=== PATIENT | male | born 1950 | race Caucasian/White ===

== ENCOUNTER 2017-02-16 10:27 | Inpatient (IN) | payer MEDICARE ==
[~2017-02-16] VITALS: Ht 180.3 cm; Wt 113.0 kg
[2017-02-16] VITALS (11 sets, daily range): BP systolic 111–149; BP diastolic 58–79; PULSE 83–98; RESP 14–20; O2SAT 92–98
[2017-02-16] MEDS: Lactated Ringer's 1,000 ML IV SCH ×3 (05:00→12:04)
[~2017-02-16 10:27] MED LIST: AMLO5TAB2 PO; CITA40TA13 PO; COLC0.6T52 PO; CeFAZolin 2 Gm/50 mL D5W IV Premix IV ONE; FERR324T2 PO; FINA5TAB9 PO; FURO40TA4 PO; HYDR-4003 PO; LEVO88TA4 PO; MULT-1018 PO; PRD5T PO; SIMV20TA4 PO; TAMS0.4C29 PO
[2017-02-16] MEDS ORDERED: CeFAZolin Inj 2 gm / 50mL D5W IV ONE (10:36)
[2017-02-16] MEDS: Vancomycin 1 Gm/200 mL NS Premix IV SCH (11:00)
[2017-02-16] MEDS ORDERED: Tranexamic Acid 100 mg/mL 10 mL Inj ONE (11:26)
[2017-02-16] MEDS ORDERED: 0.9% Sodium Chloride 100 ML ONE (11:26)
[2017-02-16] MEDS ORDERED: Bupivacaine Liposome 1.3% 20 mL Inj ONE (12:16)
[2017-02-16] MEDS ORDERED: 0.9% Sodium Chloride 10 mL Inj INFILTRATE ONE (12:55)
[2017-02-16] MEDS ORDERED: Bupivacaine Liposome 1.3% 20 mL Inj INFILTRATE ONE (12:55)
[2017-02-16] MEDS ORDERED: Bupivacaine-MPF 0.5% W/EPI 30 mL Inj INFILTRATE ONE (12:55)
[2017-02-16] MEDS ORDERED: Lactated Ringer's 500 ML IV PRN (13:24)
[2017-02-16] MEDS ORDERED: Lactated Ringer's 1,000 ML IV SCH (13:24)
--- NOTE | 2017-02-16 13:24 | PCM.HPANE ---
Patient Data Surgeon Admitting Provider: Attending Provider:Anand Archuleta DO Primary Care Physician:Nasir York MD Other Provider: Reason for Visit Right Hip Arthritis Ht/WT & BMI Height (Feet): 5 Height (Inches): 11 Weight (Kilograms): 112.76 Body Mass Index 34.00 Allergies Coded Allergies: Molds and Smuts (Verified Allergy, Intermediate, 08/25/15) aspirin (Verified Allergy, Unknown, 09/04/16) oxycodone (Verified Allergy, Unknown, 09/04/16) tetracycline (Verified Adverse Reaction, Unknown, SALT TASTE IN MOUTH, 09/29) Past Anesthesia History Anesthesia History: Denies:: Abnormal Airway, Anesthesia Reactions, Difficult Intubation, Fam Anesthesia Reaction, Fam Malignant Hypertherm, Malignant Hyperthermia Diabetes History Hx Diabetes?: No MRSA MRSA: No Medications Hypertension Medication: Yes Home Meds Incl Beta Lanre: No Reported Medications Tamsulosin ER 0.4 Mg Cap.er.24h0.4 Mg PO DAILY Ref 0 02/15/17 Simvastatin 20 Mg Fjznwv63 Mg PO HS Ref 0 02/15/17 Multivitamin (Multi Vitamin Daily)1 Each Tablet1 Each PO DAILY 30 Days Ref 0 02/15/17 Levothyroxine 88 Mcg Xioauc63 Mcg PO DAILY Ref 0 02/15/17 Hydrocodone-Acetaminophen 5-325 mg 1 Each Tablet1 Tablet PO Q4H PRN For Pain Ref 0 02/15/17 Furosemide 40 Mg Bahbso47 Mg PO DAILY 02/15/17 Finasteride 5 Mg Tablet5 Mg PO DAILY 30 Days Ref 0 02/15/17 Ferrous Sulfate 324 Mg Tablet.dr324 Mg PO DAILY 30 Days Ref 0 02/15/17 Colchicine (Colcrys)0.6 Mg Tablet0.6 Mg PO DAILY 02/15/17 Citalopram 40 Mg Feplsx69 Mg PO DAILY 30 Days Ref 0 02/15/17 Amlodipine 5 Mg Tablet5 Mg PO DAILY Ref 0 02/15/17 Prednisone (PredniSONE)5 Mg Tab5 Mg PO DAILY Ref 0 02/15/17 Discontinued Reported Medications [OTC Allergy Relief] No Conflict Check1 Tab PO DAILY PRN allergy 12/03/16 Fluticasone Propionate (Flonase Allergy Relief)50 Mcg/Actuation [place].susp9.9 Ml NS DAILY PRN allergy 12/03/16 Ferrous Sulfate 325 Mg Svarvs179 Mg PO BID 30 Days Ref 0 12/03/16 Furosemide 40 Mg Yyybsv34 Mg PO DAILY 12/03/16 Nystatin (Nyata)100,000 Unit/Gram Jfobhw74 Gm TP BID 12/03/16 Finasteride 1 Mg Tablet1 Mg PO DAILY 12/03/16 Amlodipine 10 Mg Wjoynq25 Mg PO DAILY Ref 0 12/03/16 Prednisone (PredniSONE)5 Mg Tab5 Mg PO DAILY #30 TABLET Ref 0 10/01/16 Multivitamin (Multi Vitamin Daily)1 Each Tablet1 Each PO DAILY 30 Days Ref 0 09/17/16 Hydrocodone-Acetaminophen 5-325 mg 1 Each Tablet1 Tablet PO Q4H PRN For Pain Ref 0 09/17/16 Tamsulosin ER 0.4 Mg Cap.er.24h0.4 Mg PO DAILY 30 Days Ref 0 02/20/15 Simvastatin 20 Mg Fwoclv13 Mg PO HS 30 Days Ref 0 02/20/15 Levothyroxine 88 Mcg Sogeag55 Mcg PO DAILY 30 Days Ref 0 02/20/15 Citalopram 40 Mg Bfadso59 Mg PO DAILY 30 Days Ref 0 02/20/15 History History of ENT Problems?: Yes HEENT History: Positive for:: Hearing Problem Sinus Problem (stuffiness) Denies:: Abnormal Airway Difficult Intubation Dysphagia Hx of Heart Problems?: Yes Cardiovascular History: Positive for:: Edema (legs) Hypertension Denies:: AICD Atrial Fibrillation Cardiac Surgery Chest Pain Congestive Heart Failure Heart Murmur Irregular Heartbeat Pacemaker Thrombophlebitis Valvular Heart Disease Other Cardiac History: under current care of hematolgy for hemolytic anemia- dr rodriguez. stabilized on prednisone- recommended to continue prednisone thru surgery Hx of Respiratory Problem?: Yes Respiratory History: Positive for:: Dyspnea (hip resulted in lack of activity which has led to SOB with exertion) Use of C-PAP Machine Denies:: Asthma COPD Chest Surgery Cough Emphysema Hemoptysis Oxygen Administration Pneumonia Tuberculosis Use of Inhalers / NEBS Hx Neurologic Problems?: Yes Neurological History: Denies:: CVA Multiple Sclerosis Parkinson's Disease Seizures Hx of GI Problems?: Yes Gastrointestinal History: Positive for:: Gastroesphageal Reflux Gastrointestinal Bleeding Heartburn Denies:: Diverticulitis Hepatitis Hiatal Hernia Rectal Bleeding Other GI Pertinent History: hx of Crohns disease, ostomy in place Hx of Problems?: Yes Genitourinary History: Positive for:: Kidney Stones (past hx of) Denies:: HX of Hemodialysis (CKD stage 3/ hypertensive nephrosclerosis) Urinary Tract Infection HX of Peritoneal Dialysis: No Male Hx: Positive for:: Prostate Problems (BPH) Denies:: Scrotal Mass Testicular Surgery Skin History: Positive for:: History Skin Disorders? (Heat rash in groin area occasionally) Denies:: Pressure Ulcers Hx Musculoskeletal Problems?: Yes Musculoskeletal History: Positive for:: Musculoskeletal Trauma (right hip current admission problem) Osteoarthritis Denies:: Back Injury Joint Replacement Hx of Psycho/Social Problems?: Yes Psycho Social History: Positive for:: Anxiety (Long time ago 1999) Hx Depression Denies:: Bipolar Disorder Suicide Attempt Hx Surgeries?: Yes (kidney stones) Hx Any Other Health Problems?: Yes Other History: Positive for:: Hospitalization Thyroid Disease (Hypothyroidism) Denies:: Cancer Endocrine Disease History Blood Transfusions: Positive for:: Blood Transfusions (aug 2016, 3 units for hemolytic anemia) Hx Diabetes: No Hx Alcohol Use: YesHx Substance Use: No Smoking Status: Current Every Day Smoker Have You Smoked inLast 12 mo: Yes (10 cig day) Stop/Bang P-Blood Pressure: treated: Yes B- Body Mass Index > 35 kg/m2: No A- Age over 50: Yes N- Neck Large Circumference: No G- Gender Male: Yes Risk Assessment Category Category 1A: Patient has history of documented sleep apnea, and HAS NOT received any narcotic, sedative or anesthesia administration during this stay. Category 1B: Patient has history of documented sleep apnea, and HAS received any narcotic , sedative or anesthesia administration during this stay Category 2: Patient has SUSPECTED Obstructive Sleep Apnea, and HAS received any narcotic , sedative or anesthesia administration during this stay. Category 3: Patient has SUSPECTED Obstructive Sleep Apnea and HAS NOT received narcotic, sedative or anesthesia administration during this stay. Category 4: Outpatient in Procedural Areas with known sleep apnea or who screen positive for High Risk via the STOP/BANG questionnaire. Exam Exam General Appearance: Alert, Oriented X3, Cooperative, No Acute Distress HEENT/AIRWAY: MP 2, Neck Movement Lungs: Clear to Auscultation, Diminished Heart: Exam Unremarkable, Regular Rate/Rhythm, No Murmurs/Rubs/Gallops Meds/Labs/Diagnostics Admission Meds Current Medications Lactated Ringer's (Lr) 1,000 ml @ 120 mls/hr Q8H20M IV Last administered on t 05:46; Start 02/16/17 at 05:00; Stop 02/16/17 at 13:19 Plan Impression Patient chart reviewed, patient interviewed and anesthestic plan with risks, benefits, and alternatives discussed, and informed consent obtained. NPO Status: [id number] [facility] ASA Physical Status: ASA3 Severe Disease Anesthetic Support Modalities: Amelia Scope Anesthetic Plan: GA, SAB (Will attempt SAB first, if unsuccessful then patient consented for GETA.) Bene/Risks/Altern/Consents: Yes HP Complete Prior to Induction: Yes Anand Cardozo MD Feb 16, 2017 09:29
[2017-02-16] MEDS ORDERED: EPHEDrine Sulfate 50 mg/mL Inj IVPUSH PRN (13:25)
[2017-02-16] MEDS ORDERED: Atropine 0.4 mg/mL Inj IVPUSH PRN (13:25)
[2017-02-16] MEDS ORDERED: Ondansetron 2 mg/mL 2 mL Inj IVPUSH PRN ×2 (13:25→14:05)
[2017-02-16] MEDS ORDERED: HYDROmorphone 1 mg/mL Inj IVPUSH PRN (13:25)
[2017-02-16] MEDS ORDERED: MetoCLOpramide 5 mg/mL 2 mL Inj IVPUSH PRN (13:25)
[2017-02-16] MEDS ORDERED: Phenylephrine 10,000 mCg/mL Inj IVPUSH PRN (13:25)
[2017-02-16] MEDS ORDERED: Labetalol 5 mg/mL 4 mL Inj IV PRN (13:25)
--- NOTE | 2017-02-16 13:30 | PCM.ANEP1 ---
Post Anesthesia Phase 1 PACU Phase 1 Assessment Vital Signs Vital Signs Date Time Temp Pulse Resp B/P Pulse Ox O2 Delivery O2 Flow Rate FiO2 02/16/17 11:25 36.7 83 18 134/72 95 Room Air 02/16/17 11:13 CPAP/BIPAP Anesthetic Administered: Regional Block (R ), SAB Level of Alertness: Awake, talking JOHNSON's with Equal Strength: No (SAB still in effect) Pain: No Nausea or Vomiting: No Oxygen Delivery: Simple Mask Lungs: Clear to Auscultation, Diminished Dermatome Level: T8 (Costal Margin) Anand Cardooz MD Feb 16, 2017 13:30
--- NOTE | 2017-02-16 13:31 | PCM.ANEP2 ---
Post Anesthesia Evaluation ASA/CMS Post Anesthesia VS in Patient's Normal Range?: Yes Resp Stable; Airway Patent?: Yes CV Function & Hydration Stable: Yes Mental Status Recovered?: Yes Pain control Satisfactory?: Yes N/V Control Satisfactory?: Yes Anand Cardozo MD Feb 16, 2017 13:30
[2017-02-16] MEDS ORDERED: diphenhydrAMINE 25 mg Capsule PO PRN (14:05)
[2017-02-16] MEDS ORDERED: Magnesium Hydroxide 10 mL Oral Concentration PO PRN (14:05)
[2017-02-16] MEDS ORDERED: Sodium Biphos-Phos 133 mL Enema RECTAL PRN (14:05)
[2017-02-16] MEDS ORDERED: Acetaminophen IV 1,000 MG in IV Premix 1 EACH IV PRN (14:05)
[2017-02-16] MEDS ORDERED: Polyethylene Glycol (PEG) 17 Gm Powder PO PRN (14:05)
[2017-02-16] MEDS ORDERED: HYDROmorphone 2 mg/mL Inj ONE (15:00)
[2017-02-16] MEDS ORDERED: fentaNYL-PF 50 mCg/mL 2 mL Inj ONE (15:00)
[2017-02-16] MEDS ORDERED: Neostigmine 1 mg/mL 10 mL Inj ONE (15:00)
[2017-02-16] MEDS ORDERED: Dexamethasone 4 mg/mL Inj ONE (15:00)
[2017-02-16] MEDS ORDERED: Phenylephrine/NS 100 mCg/mL 10 mL Syringe IVPUSH ONE (15:00)
[2017-02-16] MEDS ORDERED: Propofol 10,000 mCg/mL 20 mL Inj ONE (15:00)
[2017-02-16] MEDS ORDERED: Glycopyrrolate 0.2 MG/ML 1mL Inj ONE (15:00)
[2017-02-16] MEDS ORDERED: Ondansetron 2 mg/mL 2 mL Inj ONE (15:00)
[2017-02-16] MEDS: fentaNYL-PF 50 mCg/mL 2 mL Inj IVPUSH PRN ×2 (15:10→15:15)
[2017-02-16] MEDS ORDERED: HYDROmorphone 0.5 mg/0.5 mL iSecure Syringe IVPUSH PRN (15:10)
--- NOTE | 2017-02-16 15:22 | OP ---
[address] [address] OPERATIVE REPORT PATIENT: UVALDO VICTOR : 1950 MR#: [id number] ADMIT: 02/16/2017 JOB ID: [id number] DATE OF SURGERY: 02/16/2017 PREOPERATIVE DIAGNOSIS(ES): Right hip degenerative joint disease. POSTOPERATIVE DIAGNOSIS(ES): Right hip degenerative joint disease. PROCEDURE: Right total hip arthroplasty. SURGEON: Anand Archuleta D.O. SKETCH ARTIST: Karen Acevedo PA-C INDICATIONS: The patient is a 67-year-old male with right hip severe degenerative arthritis with failed conservative measures and wished to proceed with a right total hip arthroplasty. We discussed the risks, benefits, and possible complications of surgery including, but not limited to injury to nerves and vessels, infection, bleeding, incomplete relief of symptoms, stiffness, need for additional procedures. The patient had good understanding. All questions were answered and he wished to proceed. A surgical asst was required for the successful completion of this procedure. PROCEDURE IN DETAIL: The patient is brought to the operating room. He was given a preoperative antibiotic, 1 g tranexamic acid prior to surgery and a general anesthetic. Placed comfortably into the lateral decubitus position. A surgical time-out was performed. The right hip was sterilely prepped and draped. An incision was made centered over the greater trochanter in line with the femur. Dissection was carefully carried through the subcutaneous tissue and electrocautery was used for hemostasis. A split was then made in the iliotibial band in line with the skin incision and the Charnley retractor was then placed. A split was then made in the gluteus medius between the junction of the anterior one third and posterior two thirds, and Hohmann retractors were placed on either side of the femoral neck. An anterior sleeve of tissue was then released off of the anterior femur leaving a cuff of tissue for repair. This was taken to a point just distal to vastus tubercle. A small triangular portion of capsule was then removed. The hip was then dislocated and a provisional neck cut was made about a fingerbreadth above the level of the lesser trochanter. The femoral head was then removed. The box osteotome was used to begin preparation of the femur and a canal seeker was then placed. The femur was then sequentially broached up to a size 7 which had excellent fit and fill and attention was next directed towards the acetabulum. Anterior and posterior acetabular retractors were placed and the pulvinar and superior capsule were removed and the hip was then reamed sequentially up to a 55 and we trialed with a 56 shell which fit quite nicely and implanted a Endosenseuy Ryan three-hole 56 cup. Secured it further with a single superior screw which had excellent bite and placed a 36 neutral liner. Next, the femur was trialed and we trialed with the 0 and +5 head. The +5 36 head seemed to fit quite nicely and, therefore, a Tri Lock 7 stem with a 36 + 5 head were implanted. The hip was reduced. Had excellent range of motion, equal leg lengths, great stability. The wound was copiously irrigated and then closed with #5 Ethibond to repair the capsule. The remainder of the gluteus medius was repaired with #5 Ethibond in a mattress fashion. Then, the gluteus medius and vastus lateralis was repaired with #1 Surgilon. The iliotibial band was repaired with #1 Surgilon and 0-Vicryl. The subcu was closed with 2-0 Vicryl and the skin was closed with a running subcuticular 3-0 V lock. Mixture of Marcaine, saline, Exparel was added as an adjunct local anesthetic. Sterile dressings were applied as well as a silver dressing. The patient tolerated the procedure well. Blood loss was 500 cc. POSTOPERATIVE PROTOCOL: Have the patient weightbear to tolerance. Use a walker for ambulation. Will plan to use Lovenox for DVT prophylaxis as he is at increased risk for DVT followed by aspirin and plan for [place] 7.5/325 for pain.
--- NOTE | 2017-02-16 15:25 | DRSVH ---
PROCEDURE: X-RAY PELVIS W/LAT HIP (RT) ([id number]) INDICATIONS: STATUS POST RIGHT TOTAL HIP ARTHROPLASTY TECHNIQUE: AP pelvis with lateral view(s) of the right hip(s). COMPARISON: [facility], , XR PELVIS W LATERAL HIP RT, 12/08/2016, 16:50. FINDINGS: Bones: Interval postoperative changes are present related to a total right hip arthroplasty. The met allic prosthetic components are intact and appropriately seated without periprosthetic fracture versu s lucency. The remainder of the imaged osseous structures of the pelvis are unremarkable. Soft tissues: The visualized bowel gas pattern is normal. No suspicious soft tissue calcifications. A Baldwin catheter is evident. IMPRESSION: Intact right hip arthroplasty. No periprosthetic fractures. Dictated by: Al Noland M.D. on 02/16/2017 at 14:22 Approved by: Al Noland M.D. on 02/16/2017 at 14:23
[2017-02-16 15:31] LABS: APPEARANCE,URINE CLEAR (CLEAR,HAZY); COLOR,URINE YELLOW (YELLOW)
[2017-02-16 15:32] LABS: OCCULT BLOOD,URINE NEGATIVE (NEGATIVE); PH,URINE 5.5 (5.0-8.0); UROBILINOGEN,URINE NORMAL (NORMAL)
--- NOTE | 2017-02-16 15:46 | NUR ---
New admit Report received from OR nurse. awaiting patient from OR.
[2017-02-16] MEDS: 0.9% Sodium Chloride 1,000 ML IV SCH ×2 (16:06→22:05)
--- NOTE | 2017-02-16 16:23 | NUR ---
New Admit patient from OR to OSc approx 1600. hip precautions r/t SOTO. Encouraged cough and deep breathing exercises. Wedge inbetween bilateral knees to prevent adduction. Baldwin draining clear yellow urine and patent. Ice pack to right hip. right hip dressing clean dry intact. Continuous pulse oximetery and on 3L NC with stable oxygenation. Call light with in reach for safety. stable mood. Normal saline infusing as ordered via left forearm Iv access. c/o mild pain to right hip. Left scrotal redness and right lateral thigh redness and per patient it is from [place] years ago. PT, OT, amd RT pending. Stable vital signs. continue to monitor pain to right hip, safety, vital signs, and neuros.
[2017-02-16] MEDS: Sodium Chloride LOK Flush 10 mL Syringe IV SCH ×2 (16:30→23:39)
[2017-02-16] MEDS ORDERED: CeFAZolin Inj 2 GM in IV Premix 1 EACH IV SCH (16:30)
--- NOTE | 2017-02-16 16:32 | NUR ---
Colostomy Last BM this morning via colostomy to left.
--- NOTE | 2017-02-16 16:47 | PCM.HPMED ---
Subjective Date of Service Feb 16, 2017 Primary Provider: Admitting Physician: Anand Archuleta DO Primary Care Physician: Nasir York MD Attending Physician: Anand Archuleta DO Chief Complaint: medical management s/p elective hip arthroplasty History of Present Illness: The patient is a 67-year-old male with Crohn's dz s/p colectomy remotely on chronic steroid, hx of gout, HTN, HLD, depression, chronic LLE edema, BPH, hypothyroidism, right hip severe degenerative arthritis with failed conservative measures came in for elective right total hip arthroplasty. Hospitalist service was asked to follow medical problems postop course. Pt stated that he is mild pain on surgical site, but otherwise in his normal condition. denied fever, chills, cough, sputum, chest pain, difficulty breathing , nausea, vomiting at the moment. Review of Systems: Pertinent positives as noted in history of present illness. All other systems were reviewed and are negative Allergies Coded Allergies: Molds and Smuts (Verified Allergy, Intermediate, 08/25/15) aspirin (Verified Allergy, Unknown, 09/04/16) oxycodone (Verified Allergy, Unknown, 09/04/16) tetracycline (Verified Adverse Reaction, Unknown, SALT TASTE IN MOUTH, 09/29) PMH Crohn's dz s/p colectomy remotely on chronic steroid, hx of gout, HTN, HLD, depression, chronic LLE edema, right hip severe degenerative arthritis BPH hypothyroidism, Surgical History colectomy 1970s Cholecystectomy Family History Father of blood clot, dvt turned into PE Social History Hx Alcohol Use: Yes (occ) Hx Substance Use: No Hx Tobacco Use: Yes (1/2 pack per day since 1970) Smoking Status: Current Every Day Smoker Exam Vital Signs Vital Sign - Last Date Time Temp Pulse Resp B/P Pulse Ox O2 Delivery O2 Flow Rate FiO2 02/16/17 15:56 36.5 94 20 131/78 98 Nasal Cannula 3.00 Exam NAD, comfortably laying down on the bed no JVD, MMM, no LAD RRR, nl s1, s2 no mrg CTAB, no w,c S,ND,NT,normoactive BS+ warm, no edema, pulses 2/2 Rt hip sterilely dressed Assessment & Plan The patient is a 67-year-old male with Crohn's dz s/p colectomy remotely on chronic steroid, hx of gout, HTN, HLD, depression, chronic LLE edema, BPH, hypothyroidism, right hip severe degenerative arthritis with failed conservative measures came in for elective right total hip arthroplasty. Hospitalist service was asked to follow medical problems postop course. acute, active right hip severe degenerative arthritis s/p arthroplasty on 02/16 -appreciate posterior management of pain, dvt ppx per primary team. -encourage incentive spirometer use, O2 supplement as needed -cbc daily, transfuse per protocol chronic, stable, Crohn's dz s/p colectomy remotely on chronic steroid, continue steroid home dose , hx of gout, rarely using colchicine, hold off now HTN, continue home amlodipine HLD, continue simvastatin depression, continue celexa chronic LLE edema, continue home lasix BPH, continue finasteride, Flomax hypothyroidism, continue home levothyroxine dispo:Patient will be admitted with inpatient status with expectation of inpatient therapy for more than 2 midnights diet:regular diet dvt ppx:per surgery team Full Code, verbally confirmed with patient Thank you very much for allowing us to participate in this patient's care. The hospitalist team will continue to follow this patient with you and will be available for any additional questions or concerns. Time spent 65min Robby Vinson MD Feb 16, 2017 16:17
--- NOTE | 2017-02-16 18:13 | PCM.ANEP1 ---
Post Anesthesia Phase 1 PACU Phase 1 Assessment Vital Signs Vital Signs Date Time Temp Pulse Resp B/P Pulse Ox O2 Delivery O2 Flow Rate FiO2 02/16/17 15:56 36.5 94 20 131/78 98 Nasal Cannula 3.00 02/16/17 15:40 88 17 122/58 94 Nasal Cannula 3 02/16/17 15:25 93 15 123/68 92 Nasal Cannula 3 02/16/17 15:10 95 14 111/79 94 Nasal Cannula 3 02/16/17 15:00 98 15 125/67 94 Nasal Cannula 3 02/16/17 14:45 94 16 131/66 96 Simple Mask 10 02/16/17 14:40 93 14 131/65 95 Simple Mask 10 02/16/17 14:35 95 17 132/65 97 Simple Mask 10 02/16/17 14:30 36.8 92 16 149/69 96 Simple Mask 10 02/16/17 13:30 Simple Mask 02/16/17 11:25 36.7 83 18 134/72 95 Room Air 02/16/17 11:13 CPAP/BIPAP Anesthetic Administered: GA Level of Alertness: Awake, talking JOHNSON's with Equal Strength: Yes Pain: Yes (dull ache) Nausea or Vomiting: No Oxygen Delivery: Simple Mask Lungs: Clear to Auscultation, Diminished Anand Cardozo MD Feb 16, 2017 18:13
[2017-02-16] MEDS: HYDROcodone-APAP 7.5-325 mg Tablet PO PRN ×2 (18:26→23:33)
--- NOTE | 2017-02-16 18:27 | NUR ---
Pain C/o pain to right hip 04/24. PRN Pain medication given as ordered. Dr. MCCONNELL at bed side. Family at bed side.
[2017-02-16] MEDS: Senna-Docusate 8.6-50 mg Tablet PO SCH (20:30)
[2017-02-16] MEDS: CeFAZolin Inj 2 GM in IV Premix 1 EACH IV SCH (20:38)
[2017-02-17 00:14] VITALS: BP 131/71; PULSE 102; RESP 20; O2SAT 99
[2017-02-17] MEDS: CeFAZolin Inj 2 GM in IV Premix 1 EACH IV SCH (04:23)
[2017-02-17] MEDS: HYDROcodone-APAP 7.5-325 mg Tablet PO PRN ×3 (04:28→20:49)
[2017-02-17 04:29] VITALS: BP 123/67; PULSE 98; RESP 20; O2SAT 98
[2017-02-17] MEDS: 0.9% Sodium Chloride 1,000 ML IV SCH ×3 (06:05→22:05)
[2017-02-17 06:20] LABS: BASOPHILS % (AUTO) 0.1 % (0-3); EOSINOPHILS % (AUTO) 0.2 % (0-5); MONOCYTES % (AUTO) 13.6 % (4-12); Mean Corpuscular Hemoglobin 30.2 pg (27.0-35.0); Mean Corpuscular Volume 87.8 fL (81-100); NEUTROPHILS % (AUTO) 77.7 % (40-74); Platelet Count 138 bil/L (150-400)
--- NOTE | 2017-02-17 06:25 | NUR ---
Pain/card Pt reporting right hip pain up to 6 and has been taking 1 tab of 7.5/325mg [place] with relief. Right hip dressing is CDI, wedge in place, orthos intact. Pt wearing CPAP overnight, CPOx upper 90s. Colostomy putting out liquid stool. Denny dc'd this am at 0615 without issues. Pt instructed to use urinal.
[2017-02-17] MEDS: Senna-Docusate 8.6-50 mg Tablet PO SCH ×2 (08:30→20:30)
--- NOTE | 2017-02-17 08:54 | PCM.PNORTH ---
Subjective Date of Service: Feb 17, 2017 Visit Information: Reason for Visit Right Hip Arthritis Surgery/Surgery Date RIGHT TOTAL HIP 02/16/17 Post-Op Day # Date of Admission: Feb 16, 2017 at 14:59 Hospital Day # Subjective Found patient awake alert sitting up in bed. No complaints of pain at this time. Introduced myself and briefly discussed participation with formal physical therapy and performed revision physical exam on the right lower extremity. Patient demanded that his Baldwin catheter be replaced after having been taking out this morning because he has difficulty maneuvering his urinal around the end of the abduction pillow. I explained to the patient that we could not reinstate the catheter for this reason and that he is able to move the abduction pillow slightly out of the way and I demonstrated this for him and showed him how to do it. Patient ultimately became inflamed and upset regarding not being able to have his catheter put back in and began to be abusive and loud in an angry tirade. I attempted to explain the situation to the patient but I ultimately left the room in order to reduce his upset. Postop General: No Shortness of Breath, No Chest Pain Pain Management: PO Objective Exam Objective Alert and oriented 3 and abusive. Interoperative dressing is clean dry and intact. Toe wiggle and sensation are intact at right lower extremity distally Calf and thigh are soft and nontender. Abduction wedge is in place. Baldwin catheter is absent No gait yet with physical therapy as of this time. Vital Signs and I/O Vital Sign - Last Date Time Temp Pulse Resp B/P Pulse Ox O2 Delivery O2 Flow Rate FiO2 02/17/17 04:29 36.8 98 20 123/67 98 Nasal Cannula 3.00 Intake and Output 02/16/17 02/16/17 02/17/17 Cumulative From/Thru 15:00 23:00 07:00 02/15/17 09:29 - 02/17/17 06:18 Intake Total 2370 ml 1722 ml 1020 ml 5112 ml Output Total 700 ml 150 ml 1675 ml 2525 ml Balance 1670 ml 1572 ml -655 ml 2587 ml Intake Oral 1326 ml 1020 ml 2346 ml IV Total 2370 ml 396 ml 2766 ml Output Urine Total 200 ml 150 ml 1375 ml 1725 ml Stool Total 300 ml 300 ml Estimated Blood Loss 500 ml 500 ml # Bowel Movements 0 0 Lab & Micro Results Laboratory Tests Test 02/16/17 14:58 02/17/17 06:02 Urine Color Yellow (YELLOW) Urine Appearance Clear (CLEAR,HAZY) Urine pH 5.5 (5.0-8.0) Urine Specific [place] 1.020 (1.003-1.035) Urine Protein Negativemg/dL (NEG,TRACE) Urine Glucose (UA) Negativemg/dL (NEGATIVE) Urine Ketones Negativemg/dL (NEGATIVE) Urine Occult Blood Negative (NEGATIVE) Urine Nitrite Negative (NEGATIVE) Urine Bilirubin Negative (NEGATIVE) Urine Urobilinogen Normalmg/dL (NORMAL) Urine Leukocyte Esterase Negative (NEGATIVE) Urine RBC 0-2/hpf (0-2) Urine WBC 0-5/hpf (0-5) Urine Epithelial Cells Occasional/hpf (NONE-MOD) Urine Crystals Amorphous urates (NONE Urine Bacteria None/hpf (NONE-FEW) Urine Hyaline Casts None/lpf (NONE) Urine Granular Casts None seen (NONE SEEN) Urine Waxy Casts None seen (NONE SEEN) Urine Red Blood Cell Casts None seen (NONE SEEN) Urine White Blood Cell Casts None seen (NONE SEEN) Urine Mucus None seen (None Seen) Urine Trichomonas None seen (NONE SEEN) Urine Yeast None (NONE SEEN) Urinalysis Comment None Urine Culture Reflexed Not indicated White Blood Count 8.8th/mm3 (3.8-10.1) Red Blood Count 3.28mil/mm3 (4.40-5.80) Hemoglobin 9.9g/dL (13.8-17.2) Hematocrit 28.8% (41.0-50.0) Mean Corpuscular Volume 87.8fL (81-100) Mean Corpuscular Hemoglobin 30.2pg (27.0-35.0) Mean Corpuscular Hemoglobin Concent 34.4% (32.0-37.0) Red Cell Distribution Width 13.2% (12.3-15.4) Platelet Count 138bil/L (150-400) Neutrophils (%) (Auto) 77.7% (40-74) Lymphocytes (%) (Auto) 8.2% (14-46) Monocytes (%) (Auto) 13.6% (4-12) Eosinophils (%) (Auto) 0.2% (0-5) Basophils (%) (Auto) 0.1% (0-3) Creatinine 1.69mg/dL (0.76-1.27) Result Diagram: 02/17/17 0602/17/17 06 General Appearance: Alert, Oriented X3, Cooperative, No Acute Distress Extremities: No Compartment Syndrom Noted, Thigh & Calf Soft/Nontender Postop Sensory Motor: Distal Motor Intact, Movement in Toes, Distal Sensation Intact Activity: Activity per PT, Ambulate with PT (weightbearing as tolerated on the right lower extremity using a front wheeled walker.) Catheters: None Assessment & Plan Impression Patient is a 67-year-old male who is undergone a right total hip arthroplasty on 02/16/[address] Anand Archuleta. Patient has no complaints of pain at this time but has become extremely agitated when advised that we could not replace his Baldwin catheter this morning. Problems: Plan Postop day #1 from right total hip arthroplasty performed on 02/16/[address] Anand Archuleta. Weightbearing as tolerated on the right lower extremity using front wheeled walker. Continue formal physical therapy for mobility, gait and safety. Continue by mouth pain medication as needed. Continue Lovenox 40 mg subcutaneous daily 3 weeks postop with transition to ASA 325 mg EC by mouth twice a day times an additional 3 weeks postop totaling 6 weeks postoperative DVT prophylaxis. Interoperative dressing will be changed on postop day #2. Baldwin catheter has been DC'd this morning. Patient is extremely angry that Baldwin catheter cannot be replaced to assist him in convenience of urination regarding his hip abduction pillow. Nursing please fit patient with left side SCD today. Nursing please measure and fit left EDITH hose today with addition of right tomorrow on postop day #2 after bandages change. Follow-up in 2 weeks at [facility] orthopedic clinic with mid-level provider on prearranged appointment for wound check and suture removal. Follow-up in 6 weeks [facility] orthopedic clinic on prearranged appointment with Dr. Anand Diaz with AP pelvis and right crosstable lateral hip x-ray on arrival. Anticipate discharge to home on or before postop day #3, 02/19/2017. VTE Prophylaxis: Sub-Q Enoxaparin (Lovenox 40 mg 3 weeks postop for DVT prophylaxis with transition to ASA 325 mg EC by mouth twice a day times an additional 3 weeks totaling 6 weeks postop DVT prophylaxis.) Holland Burgos PA-C Feb 17, 2017 08:54
[2017-02-17] MEDS: Sodium Chloride LOK Flush 10 mL Syringe IV SCH ×2 (09:32→17:15)
[2017-02-17] MEDS: predniSONE 5 mg Tablet PO SCH (09:32)
[2017-02-17 09:46] VITALS: BP 134/68; PULSE 94; RESP 18; O2SAT 97
--- NOTE | 2017-02-17 10:00 | PCM.PNMED ---
Subjective Date of Service Feb 17, 2017 Subjective pt c/o mild hip pain on left side Exam Vital Signs Vital Sign - Last Date Time Temp Pulse Resp B/P Pulse Ox O2 Delivery O2 Flow Rate FiO2 02/17/17 09:46 37.2 94 18 134/68 97 Room Air 02/17/17 04:29 3.00 Intake and Output 02/16/17 02/16/17 02/17/17 Cumulative From/Thru 15:00 23:00 07:00 02/15/17 09:29 - 02/17/17 06:18 Intake Total 2370 ml 1722 ml 1020 ml 5112 ml Output Total 700 ml 150 ml 1675 ml 2525 ml Balance 1670 ml 1572 ml -655 ml 2587 ml Intake Oral 1326 ml 1020 ml 2346 ml IV Total 2370 ml 396 ml 2766 ml Output Urine Total 200 ml 150 ml 1375 ml 1725 ml Stool Total 300 ml 300 ml Estimated Blood Loss 500 ml 500 ml # Bowel Movements 0 0 Exam NAD, comfortably laying down on the bed no JVD, MMM, no LAD RRR, nl s1, s2 no mrg CTAB, no w,c S,ND,NT,normoactive BS+ warm, no edema, pulses 2/2 BLE, sensory intact, IVs and Medications Medications Reviewed: Medications were reviewed in detail Lab and Diagnostics Result Diagram: 02/17/1760102/17/17601 Assessment & Plan The patient is a 67-year-old male with Crohn's dz s/p colectomy remotely on chronic steroid, hx of gout, HTN, HLD, depression, chronic LLE edema, BPH, hypothyroidism, right hip severe degenerative arthritis with failed conservative measures came in for elective right total hip arthroplasty. Hospitalist service was asked to follow medical problems postop course. acute, active right hip severe degenerative arthritis s/p arthroplasty on 02/16 -appreciate posterior management of pain, dvt ppx per primary team. -encourage incentive spirometer use, O2 supplement as needed -cbc daily, transfuse per protocol -card to be d/radames as long as pt can void chronic, stable, Crohn's dz s/p colectomy remotely on chronic steroid, continue steroid home dose , hx of gout, rarely using colchicine, hold off now HTN, continue home amlodipine HLD, continue simvastatin depression, continue celexa chronic LLE edema, continue home lasix BPH, continue finasteride, Flomax hypothyroidism, continue home levothyroxine dispo:likely d/c on POD#3 diet:regular diet dvt ppx:per surgery team Full Code, verbally confirmed with patient VTE Prophylaxis: Sub-Q Enoxaparin (Lovenox 40 mg 3 weeks postop for DVT prophylaxis with transition to ASA 325 mg EC by mouth twice a day times an additional 3 weeks totaling 6 weeks postop DVT prophylaxis.) VTE Mechanical Devices: Intermittant Pneumatic CD Time spent 35min Robby Vinson MD Feb 17, 2017 10:00
--- NOTE | 2017-02-17 11:56 | NUR ---
Evaluation completed. Please go to "Notes" then click on "Assessments and Notes" (bottom left corner of screen). Then select appropriate discipline tab on top of screen.
--- NOTE | 2017-02-17 16:54 | NUR ---
Social Work-initial assessment: Data:See initial assessment. Pt is a 67 y/o male who was admitted on 02/16/17 for Right Hip Arthritis per H&P. Pt's insurance is Medicare and PCP is Nasir York MD. EMR Reviewed. Pt's readmission score is not available. SW met with ptat bedside to discuss discharge planning, SW role explained. Pt is alert and oriented x3. Pt resides at home alone in a single level apartment with no steps to enter where pt remains independent with basic ADLs. Pt uses a walker at baseline and does not drive. Pt has no HH or SNF history. Pt has not completed DPOA/ advanced directive and SW provided information to review and complete. Pt has no shelter care or VA benefits. Pt's friend to provide transport home at discharge. SW provided phone number and plan on white board in room. SW will continue to follow. Assessment:Pt who resides at home alone and is independent at baseline. Plan:Pt to likely discharge home. SW will continue to follow for needs. MATHEUS Lopes Addendum: 02/17/17 at 1658 by RYNE DSOUZA SS Amended: Links added.
--- NOTE | 2017-02-17 18:58 | NUR ---
Pain Patient medicated for hip pain with 2 [place] which seem to be effective for reducing pain level. Patient up with physical therapy Patient unpredictable with mood.
[2017-02-17 21:04] VITALS: BP 148/74; PULSE 98; RESP 20; O2SAT 98
[2017-02-17] MEDS ORDERED: Lidocaine 2% 6mL Topical Jelly TOPICAL ONE (21:25)
[2017-02-18 04:22] VITALS: BP 152/80; PULSE 97; RESP 18; O2SAT 97
[2017-02-18 05:40] LABS: BASOPHILS % (AUTO) 0.1 % (0-3); EOSINOPHILS % (AUTO) 0.5 % (0-5); Mean Corpuscular Hemoglobin 30.2 pg (27.0-35.0); Mean Corpuscular Volume 87.8 fL (81-100); NEUTROPHILS % (AUTO) 76.8 % (40-74); Platelet Count 114 bil/L (150-400)
[2017-02-18] MEDS: HYDROcodone-APAP 7.5-325 mg Tablet PO PRN ×4 (05:52→22:47)
[2017-02-18] MEDS: Sodium Chloride LOK Flush 10 mL Syringe IV SCH ×3 (05:56→16:30)
[2017-02-18] MEDS: 0.9% Sodium Chloride 1,000 ML IV SCH ×3 (05:57→22:05)
--- NOTE | 2017-02-18 06:00 | NUR ---
urinary frequency. Bladder scan with greater than 999ml. 2130 Baldwin cath reinserted per protocol without problems.
[2017-02-18] MEDS: predniSONE 5 mg Tablet PO SCH (08:07)
[2017-02-18] MEDS: Senna-Docusate 8.6-50 mg Tablet PO SCH ×2 (08:13→20:30)
--- NOTE | 2017-02-18 09:21 | PCM.PNMED ---
Subjective Date of Service Feb 18, 2017 Subjective pt has some urinary complaints with card, not it's take out, otherwise, c/o minimal from surgery Exam Vital Signs Vital Sign - Last Date Time Temp Pulse Resp B/P Pulse Ox O2 Delivery O2 Flow Rate FiO2 02/18/17 04:22 37.0 97 18 152/80 97 Room Air 02/17/17 04:29 3.00 Intake and Output 02/17/17 02/17/17 02/18/17 Cumulative From/Thru 15:00 23:00 07:00 02/15/17 09:29 - 02/18/17 06:06 Intake Total 776 ml 1200 ml 920 ml 8008 ml Output Total 1300 ml 1925 ml 5750 ml Balance 776 ml -100 ml -1005 ml 2258 ml Intake Oral 1200 ml 920 ml 4466 ml IV Total 776 ml 3542 ml Output Urine Total 1100 ml 1550 ml 4375 ml Stool Total 200 ml 375 ml 875 ml Estimated Blood Loss 500 ml # Bowel Movements 0 Exam NAD, comfortably laying down on the bed no JVD, MMM, no LAD RRR, nl s1, s2 no mrg CTAB, no w,c S,ND,NT,normoactive BS+ warm, no edema, pulses 2/2 BLE, sensory intact, IVs and Medications Medications Reviewed: Medications were reviewed in detail Lab and Diagnostics Result Diagram: 02/18/17 0505 02/18/17 0505 Assessment & Plan The patient is a 67-year-old male with Crohn's dz s/p colectomy remotely on chronic steroid, hx of gout, HTN, HLD, depression, chronic LLE edema, BPH, hypothyroidism, right hip severe degenerative arthritis with failed conservative measures came in for elective right total hip arthroplasty. Hospitalist service was asked to follow medical problems postop course. acute, active right hip severe degenerative arthritis s/p arthroplasty on 02/16 -appreciate posterior management of pain, dvt ppx per primary team. -encourage incentive spirometer use, O2 supplement as needed -cbc daily, transfuse per protocol -card to be d/radames as long as pt can void chronic, stable, Crohn's dz s/p colectomy remotely on chronic steroid, continue steroid home dose , hx of gout, rarely using colchicine, hold off now HTN, continue home amlodipine HLD, continue simvastatin depression, continue celexa chronic LLE edema, continue home lasix BPH, continue finasteride, Flomax hypothyroidism, continue home levothyroxine dispo:likely d/c on POD#3 diet:regular diet dvt ppx:per surgery team Full Code, verbally confirmed with patient VTE Prophylaxis: Sub-Q Enoxaparin (Lovenox 40 mg 3 weeks postop for DVT prophylaxis with transition to ASA 325 mg EC by mouth twice a day times an additional 3 weeks totaling 6 weeks postop DVT prophylaxis.) VTE Mechanical Devices: Intermittant Pneumatic CD, Anti-Embolic stockings Time spent 35 minutes Robby Vinson MD Feb 18, 2017 09:21
--- NOTE | 2017-02-18 09:22 | PCM.PNORTH ---
Subjective Date of Service: Feb 18, 2017 Visit Information: Reason for Visit Right Hip Arthritis Surgery/Surgery Date RIGHT TOTAL HIP 02/16/17 Post-Op Day # Date of Admission: Feb 16, 2017 at 14:59 Hospital Day # Subjective Found patient awake and alert and sitting up in bed. No complaints of pain at this time. Patient's abduction which is in place but not strapped to his legs. Discussed changing his dressing this morning and he is willing to allow us to do this. shipping and receiving assistant in the process which went smoothly and patient's wound is in good condition. Abduction wedge is prepped in at all times during the process. Patient the N breakfast immediately after the dressing change was completed. Postop General: No Complaints, No Shortness of Breath, No Chest Pain Pain Management: PO Objective Exam Objective Alert and oriented 3. Interoperative dressing is clean dry and intact. Interoperative dressing is removed this morning and replaced with a postoperative dressing. Silverlon is kept in place and re-wet. Calf and thigh are soft and nontender. Toe wiggle and sensation are intact at right lower extremity distally. Baldwin is absent. Abduction wedges in place. Vital Signs and I/O Vital Sign - Last Date Time Temp Pulse Resp B/P Pulse Ox O2 Delivery O2 Flow Rate FiO2 02/18/17 04:22 37.0 97 18 152/80 97 Room Air 02/17/17 04:29 3.00 Intake and Output 02/17/17 02/17/17 02/18/17 Cumulative From/Thru 15:00 23:00 07:00 02/15/17 09:29 - 02/18/17 06:06 Intake Total 776 ml 1200 ml 920 ml 8008 ml Output Total 1300 ml 1925 ml 5750 ml Balance 776 ml -100 ml -1005 ml 2258 ml Intake Oral 1200 ml 920 ml 4466 ml IV Total 776 ml 3542 ml Output Urine Total 1100 ml 1550 ml 4375 ml Stool Total 200 ml 375 ml 875 ml Estimated Blood Loss 500 ml # Bowel Movements 0 Lab & Micro Results Laboratory Tests Test 02/18/17 05:05 White Blood Count 7.7th/mm3 (3.8-10.1) Red Blood Count 3.11mil/mm3 (4.40-5.80) Hemoglobin 9.4g/dL (13.8-17.2) Hematocrit 27.3% (41.0-50.0) Mean Corpuscular Volume 87.8fL (81-100) Mean Corpuscular Hemoglobin 30.2pg (27.0-35.0) Mean Corpuscular Hemoglobin Concent 34.4% (32.0-37.0) Red Cell Distribution Width 13.1% (12.3-15.4) Platelet Count 114bil/L (150-400) Neutrophils (%) (Auto) 76.8% (40-74) Lymphocytes (%) (Auto) 8.5% (14-46) Monocytes (%) (Auto) 14.0% (4-12) Eosinophils (%) (Auto) 0.5% (0-5) Basophils (%) (Auto) 0.1% (0-3) Creatinine 1.73mg/dL (0.76-1.27) Result Diagram: 02/18/17 0505 02/18/17 0505 General Appearance: Alert, Oriented X3, No Acute Distress Extremities: No Compartment Syndrom Noted, Thigh & Calf Soft/Nontender Postop Sensory Motor: Distal Motor Intact, Movement in Toes, Distal Sensation Intact Activity: Activity per PT, Ambulate with PT (weightbearing as tolerated on the right lower extremity using a front wheeled walker.) Catheters: None Assessment & Plan Plan Postop day #2 from right total hip arthroplasty performed on 02/16/[address] Anand Archuleta. Weightbearing as tolerated on the right lower extremity using front wheeled walker. Continue formal physical therapy for mobility, gait and safety. Continue by mouth pain medication as needed. Continue Lovenox 40 mg subcutaneous daily 3 weeks postop with transition to ASA 325 mg EC by mouth twice a day times an additional 3 weeks postop totaling 6 weeks postoperative DVT prophylaxis. Interoperative dressings changed postoperative dressing today and wound is in good condition. Patient is apparently displeased with the bandaged change interruption but did allow us to change the bandage. Nursing please add SCDs and EDITH hose to right lower extremity today, 02/18/2017. Follow-up in 2 weeks at [facility] orthopedic clinic with mid-level provider on prearranged appointment for wound check and suture removal. Follow-up in 6 weeks [facility] orthopedic clinic on prearranged appointment with Dr. Anand Diaz with AP pelvis and right crosstable lateral hip x-ray on arrival. Anticipate discharge to home on or before postop day #3, 02/19/2017. VTE Prophylaxis: Sub-Q Enoxaparin (Lovenox 40 mg 3 weeks postop for DVT prophylaxis with transition to ASA 325 mg EC by mouth twice a day times an additional 3 weeks totaling 6 weeks postop DVT prophylaxis.), Giorgi (left side in place. Right side to be edited today, 02/18/2017.), EDITH Santana (left side in place, right to be added today, 02/18/2017) Holland Burgos PA-C Feb 18, 2017 09:22
[2017-02-18 12:42] VITALS: BP 115/60; PULSE 104; RESP 18; O2SAT 99
--- NOTE | 2017-02-18 15:44 | NUR ---
Social Work-Readiness for Discharge Data:EMR reviewed. Pt is on day 2 of hospitalization for Right Hip Arthritis per H&P. Pt is not medically stable, anticipate discharge in 1-2 more days. PT recommending outpt PT services at discharge. Pt to discharge home with friend to provide transport. No anticipated discharge needs, SW will continue to follow. Assessment:Pt who resides at home alone and is independent at baseline. Plan: Pt to likely discharge home. SW will continue to follow for needs. MATHEUS Desai
--- NOTE | 2017-02-18 19:37 | NUR ---
At start of shift, pt found to have accidentally removed his Baldwin catheter which was anchored on his leg. Pt home medications of Furosemide, Flomax and Finesteride were resumed and pt reports decrease in burning with urination but is voiding in 50cc-150cc intervals. PVR performed this afternoon with 238cc, pt understands we will in and out catheterize him for a volume greater than 350cc. Urine color was pink tinged with some clots for most of the day but has returned to an adria color at this time.
[2017-02-18 19:58] VITALS: BP 139/70; PULSE 102; RESP 18; O2SAT 97
[2017-02-19] MEDS ORDERED: Lidocaine 2% 6mL Topical Jelly TOPICAL ONE ×2 (01:00→06:50)
[2017-02-19] MEDS: Sodium Chloride LOK Flush 10 mL Syringe IV SCH ×3 (01:05→16:30)
[2017-02-19 04:04] VITALS: BP 143/73; PULSE 91; RESP 20; O2SAT 98
--- NOTE | 2017-02-19 04:33 | NUR ---
urinary retention pt bladder scanned at 0100 and found to have a PVR of >999. per order he was in and out cathed and a total of 1000ml of urine was drained. PVR was then 0. pt has been sleeping comfortably since then. will bladder scan again this AM. care continues. Addendum: 02/19/17 at 0742 by MARTIN BAHENA RN this AM pt was still not able to urinate and his bladder scan was >999. notified who said to put in an indwelling card cath. pt was talked to and Holland Sheikh and it was agreed they would like to try and give pt his lasix and flomax this morning before placing catheter. medications administered. report given to lyla MULLER will monitor.
[2017-02-19] MEDS: 0.9% Sodium Chloride 1,000 ML IV SCH ×3 (06:05→22:05)
[2017-02-19] MEDS: Senna-Docusate 8.6-50 mg Tablet PO SCH ×2 (08:30→20:32)
[2017-02-19] MEDS: predniSONE 5 mg Tablet PO SCH (08:41)
[2017-02-19] MEDS: HYDROcodone-APAP 7.5-325 mg Tablet PO PRN ×2 (08:43→13:01)
--- NOTE | 2017-02-19 08:58 | PCM.PNORTH ---
Subjective Date of Service: Feb 19, 2017 Visit Information: Reason for Visit Right Hip Arthritis Surgery/Surgery Date RIGHT TOTAL HIP 02/16/17 Post-Op Day # Date of Admission: Feb 16, 2017 at 14:59 Hospital Day # Subjective Found patient awake and alert this morning and sitting up in bed having finished his breakfast. Discussed with patient and nurse that he may remain in house one more day secondary to hospital service working on urinary retention. Discussed the fact that patient had his abduction wedge back in place this morning which he states was laced back by physical therapy. I advised patient that he may discontinue the use of this device. Patient has is his usual practice with my contact with him became belligerent and abusive regarding the staff in the hospital and his care in general. Postop General: No Shortness of Breath, No Chest Pain, Good Appetite Pain Management: PO Objective Exam Objective Alert and oriented and very unpleasant. Postoperative dressing is clean dry and intact. Calf and thigh are soft and nontender. Toe wiggle and sensation are intact at right lower extremity distally. Vital Signs and I/O Vital Sign - Last Date Time Temp Pulse Resp B/P Pulse Ox O2 Delivery O2 Flow Rate FiO2 02/19/17 04:04 36.7 91 20 143/73 98 Room Air 02/17/17 04:29 3.00 Intake and Output 02/18/17 02/18/17 02/19/17 Cumulative From/Thru 15:00 23:00 07:00 02/15/17 09:29 - 02/19/17 06:38 Intake Total 1720 ml 920 ml 92114 ml Output Total 1425 ml 1075 ml 8250 ml Balance 295 ml -155 ml 2398 ml Intake Oral 1720 ml 920 ml 7106 ml IV Total 3542 ml Output Urine Total 1025 ml 850 ml 6250 ml Stool Total 400 ml 225 ml 1500 ml Estimated Blood Loss 500 ml # Bowel Movements 0 Result Diagram: 02/18/17 0505 02/18/17 0505 Extremities: No Compartment Syndrom Noted, Thigh & Calf Soft/Nontender Postop Sensory Motor: Distal Motor Intact, Movement in Toes, Distal Sensation Intact Activity: Activity per PT, Ambulate with PT (weightbearing as tolerated on the right lower extremity using a front wheeled walker.) Catheters: None Assessment & Plan Impression Patient is postop day #3 from right total hip arthroplasty performed on 2016. Patient is apparently angry and continues to be abusive to staff. He is otherwise mobile and cleared by physical therapy for discharge to home. Patient does have some urinary retention issues which hospital services working on and has requested that we leave him in house for 1 extra day. Problems: Plan Postop day #3 from right total hip arthroplasty performed on 02/16/[address] Anand Archuleta. Weightbearing as tolerated on the right lower extremity using front wheeled walker. Continue formal physical therapy for mobility, gait and safety. Continue by mouth pain medication as needed. Continue Lovenox 40 mg subcutaneous daily 3 weeks postop with transition to ASA 325 mg EC by mouth twice a day times an additional 3 weeks postop totaling 6 weeks postoperative DVT prophylaxis. Nursing please continue SCDs at lower extremities today if patient will allow, 02/19/2017. Discussed patient's apparent urinary retention with Dr. Dominique this morning and he has requested that we keep patient in overnight so that he may work on this issue. I have mentioned to Dr. dominique that patient has received Lasix and Flomax and is currently waiting urge to urinate. Dr. Dominique suggests in and out cath if needed. Follow-up in 2 weeks at [facility] orthopedic clinic with mid-level provider on prearranged appointment for wound check and suture removal. Follow-up in 6 weeks [facility] orthopedic clinic on prearranged appointment with Dr. Anand Diaz with AP pelvis and right crosstable lateral hip x-ray on arrival. Anticipate discharge to home on or before postop day #4, 02/19/2017. Note: Patient continues to display angry and abusive behaviors to staff. VTE Prophylaxis: Sub-Q Enoxaparin (Lovenox 40 mg 3 weeks postop for DVT prophylaxis with transition to ASA 325 mg EC by mouth twice a day times an additional 3 weeks totaling 6 weeks postop DVT prophylaxis.), SCDs (left side in place. Right side to be edited today, 02/18/2017.), EDITH Santana (left side in place, right to be added today, 02/18/2017) Holland Burgos PA-C Feb 19, 2017 08:57
--- NOTE | 2017-02-19 10:44 | PCM.PNMED ---
Subjective Date of Service Feb 19, 2017 Subjective patient still has urinary retention, >1liter on bladder scan yesterday surgically cleared from orthopedic Exam Vital Signs Vital Sign - Last Date Time Temp Pulse Resp B/P Pulse Ox O2 Delivery O2 Flow Rate FiO2 02/19/17 09:47 Room Air 02/19/17 04:04 36.7 91 20 143/73 98 02/17/17 04:29 3.00 Intake and Output 02/18/17 02/18/17 02/19/17 Cumulative From/Thru 15:00 23:00 07:00 02/15/17 09:29 - 02/19/17 06:38 Intake Total 1720 ml 920 ml 15073 ml Output Total 1425 ml 1075 ml 8250 ml Balance 295 ml -155 ml 2398 ml Intake Oral 1720 ml 920 ml 7106 ml IV Total 3542 ml Output Urine Total 1025 ml 850 ml 6250 ml Stool Total 400 ml 225 ml 1500 ml Estimated Blood Loss 500 ml # Bowel Movements 0 Exam NAD, comfortably laying down on the bed no JVD, MMM, no LAD RRR, nl s1, s2 no mrg CTAB, no w,c S,ND,NT,normoactive BS+ warm, no edema, pulses 2/2 BLE, sensory intact, IVs and Medications Medications Reviewed: Medications were reviewed in detail Lab and Diagnostics Result Diagram: 02/18/17 0505 02/18/17 0505 Assessment & Plan The patient is a 67-year-old male with Crohn's dz s/p colectomy remotely on chronic steroid, hx of gout, HTN, HLD, depression, chronic LLE edema, BPH, hypothyroidism, right hip severe degenerative arthritis with failed conservative measures came in for elective right total hip arthroplasty. Hospitalist service was asked to follow medical problems postop course. acute, active right hip severe degenerative arthritis s/p arthroplasty on 02/16 -appreciate posterior management of pain, dvt ppx per primary team. -encourage incentive spirometer use, O2 supplement as needed -cbc daily, transfuse per protocol Urinary retention, developed postop, likely in the setting of BPH -continue flomax, finasteride, -will do q6h standing bladder scan, straight cath as needed CKD, POA, cr1.69-1.73, no significant chg from baseline -avoid renal toxin, adjust meds renally chronic, stable, Crohn's dz s/p colectomy remotely on chronic steroid, continue steroid home dose , hx of gout, rarely using colchicine, hold off now HTN, continue home amlodipine HLD, continue simvastatin depression, continue celexa chronic LLE edema, continue home lasix hypothyroidism, continue home levothyroxine dispo:likely today or tomorrow when urinary retention resolves diet:regular diet dvt ppx:per surgery team Full Code, verbally confirmed with patient VTE Prophylaxis: Sub-Q Enoxaparin (Lovenox 40 mg 3 weeks postop for DVT prophylaxis with transition to ASA 325 mg EC by mouth twice a day times an additional 3 weeks totaling 6 weeks postop DVT prophylaxis.), SCDs (left side in place. Right side to be edited today, 02/18/2017.), EDITH Santana (left side in place, right to be added today, 02/18/2017) VTE Mechanical Devices: Intermittant Pneumatic CD Time spent 35min Robby Vinson MD Feb 19, 2017 10:44
[2017-02-19] MEDS: Insulin LISPRO 300 Unit/3 mL Inj SUBQ SCH ×3 (13:01→22:00)
[2017-02-19 15:06] VITALS: BP 103/63; PULSE 97; RESP 16; O2SAT 97
--- NOTE | 2017-02-19 17:08 | NUR ---
Urinary retention/Labs Pt had urinary retention issues overnight, order received at change of shift to replace Baldwin catheter by night hospitalist. Flomax, Finesteride and Lasix given and urine output increased. PVR residual performed at 1030 was 536 with no bladder discomfort, MD aware and asked to continue monitoring PVR's q 4hrs and notify him if volume was greater than 500cc again. PVR at 1500 was 279. Creatinine elevated to 2.16, MD aware, no order changes at this time. Blood glucose 250 with morning labs, sliding scale initiated.
[2017-02-19 17:54] VITALS: BP 135/77; PULSE 88; RESP 18; O2SAT 99
[2017-02-19 19:40] VITALS: BP 132/75; PULSE 107; RESP 16; O2SAT 98
[2017-02-20] MEDS: Sodium Chloride LOK Flush 10 mL Syringe IV SCH ×3 (00:31→17:12)
--- NOTE | 2017-02-20 02:24 | NUR ---
Urine retention Pt urinating well this shift. Standing at bedside using urinal has helped to get things moving Pt pain well controlled. 0 requests for PRN vicodin, dressing to right hip incision CDI. Addendum: 02/20/17 at 0456 by MONTSE BROOKS RN Urine retention Pt bladder scanned after urination, noted to have 800 on scan- in/out cath done and removed 1000. Pt ok with procedure, lidocaine used.
[2017-02-20] MEDS: HYDROcodone-APAP 7.5-325 mg Tablet PO PRN ×3 (05:16→22:46)
[2017-02-20 06:00] VITALS: BP 127/74; PULSE 98; RESP 16; O2SAT 96
[2017-02-20] MEDS: 0.9% Sodium Chloride 1,000 ML IV SCH ×2 (06:05→14:05)
[2017-02-20 06:47] LABS: BASOPHILS % (AUTO) 0.1 % (0-3); EOSINOPHILS % (AUTO) 2.7 % (0-5); MONOCYTES % (AUTO) 12.4 % (4-12); Mean Corpuscular Hemoglobin 29.9 pg (27.0-35.0); Mean Corpuscular Volume 88.1 fL (81-100); NEUTROPHILS % (AUTO) 74.2 % (40-74); Platelet Count 146 bil/L (150-400)
[2017-02-20 07:33] LABS: Magnesium 1.9 mg/dL (1.6-2.6); Phosphorus 3.8 mg/dL (2.5-4.9)
[2017-02-20] MEDS: Insulin LISPRO 300 Unit/3 mL Inj SUBQ SCH ×4 (08:00→22:00)
[2017-02-20] MEDS: Senna-Docusate 8.6-50 mg Tablet PO SCH ×2 (08:07→20:17)
[2017-02-20] MEDS: predniSONE 5 mg Tablet PO SCH (08:07)
--- NOTE | 2017-02-20 08:16 | NUR ---
Refusing education Pt refuses to be educated on administration of Lovenox. Care continues.
--- NOTE | 2017-02-20 09:00 | PCM.PNORTH ---
Subjective Date of Service: Feb 20, 2017 Visit Information: Reason for Visit Right Hip Arthritis Surgery/Surgery Date RIGHT TOTAL HIP 02/16/17 Post-Op Day # 4 Date of Admission: Feb 16, 2017 at 14:59 Hospital Day # Subjective Patient states he is having better pain control today than on previous days. He states he has been getting up with physical therapy and is encouraged by the progress he has been making. He states he is still concerned with his urinary retention. Postop General: No Shortness of Breath, No Chest Pain, Good Appetite Pain Management: PO Objective Exam Objective Patient sitting up in bed Vital Signs and I/O Vital Sign - Last Date Time Temp Pulse Resp B/P Pulse Ox O2 Delivery O2 Flow Rate FiO2 02/20/17 06:00 36.5 98 16 127/74 96 Room Air 02/17/17 04:29 3.00 Intake and Output 02/19/17 02/19/17 02/20/17 Cumulative From/Thru 15:00 23:00 07:00 02/15/17 09:29 - 02/20/17 06:00 Intake Total 1036 ml 1500 ml 86097 ml Output Total 1700 ml 2025 ml 77623 ml Balance -664 ml -525 ml 1209 ml Intake Oral 1036 ml 1500 ml 9642 ml IV Total 3542 ml Output Urine Total 1350 ml 1725 ml 9325 ml Stool Total 350 ml 300 ml 2150 ml Estimated Blood Loss 500 ml # Bowel Movements 0 Lab & Micro Results Laboratory Tests Test 02/19/17 10:00 02/20/17 05:47 Sodium Level 140mEq/L (134-144) 139mEq/L (134-144) Potassium Level 3.7mEq/L (3.5-5.2) 4.0mEq/L (3.5-5.2) Chloride Level 103mEq/L (97-108) 103mEq/L (97-108) Carbon Dioxide Level 17mmol/L (18-29) 17mmol/L (18-29) Blood Urea Nitrogen 27mg/dL (8-27) 27mg/dL (8-27) Creatinine 2.16mg/dL (0.76-1.27) 1.94mg/dL (0.76-1.27) Estimat Glomerular Filtration Rate 33mL/min (>59) 37mL/min (>59) Glucose Level 250mg/dL (60-99) 141mg/dL (60-99) Calcium Level 8.4mg/dL (8.5-10.1) 9.1mg/dL (8.5-10.1) Total Bilirubin 0.4mg/dL (0.0-1.2) 0.3mg/dL (0.0-1.2) Aspartate Amino Transf (AST/SGOT) 10U/L (0-50) 10U/L (0-50) Alanine Aminotransferase (ALT/SGPT) 8U/L (0-44) 10U/L (0-44) Alkaline Phosphatase 55U/L (25-160) 54U/L (25-160) Total Protein 5.4g/dL (6.4-8.4) 5.6g/dL (6.4-8.4) Albumin 3.3g/dL (3.4-5.0) 3.3g/dL (3.4-5.0) White Blood Count 6.9th/mm3 (3.8-10.1) Red Blood Count 3.11mil/mm3 (4.40-5.80) Hemoglobin 9.3g/dL (13.8-17.2) Hematocrit 27.4% (41.0-50.0) Mean Corpuscular Volume 88.1fL (81-100) Mean Corpuscular Hemoglobin 29.9pg (27.0-35.0) Mean Corpuscular Hemoglobin Concent 33.9% (32.0-37.0) Red Cell Distribution Width 13.1% (12.3-15.4) Platelet Count 146bil/L (150-400) Neutrophils (%) (Auto) 74.2% (40-74) Lymphocytes (%) (Auto) 10.5% (14-46) Monocytes (%) (Auto) 12.4% (4-12) Eosinophils (%) (Auto) 2.7% (0-5) Basophils (%) (Auto) 0.1% (0-3) Phosphorus Level 3.8mg/dL (2.5-4.9) Magnesium Level 1.9mg/dL (1.6-2.6) Result Diagram: 02/20/17 0547 02/20/17 0547 General Appearance: Alert, Oriented X3, Cooperative, No Acute Distress Extremities: Distal Pulses Palpable, No Compartment Syndrom Noted, Thigh & Calf Soft/Nontender, Tenderness/Swelling Noted (Along incision) Postop Sensory Motor: Distal Motor Intact, Movement in Toes, Distal Sensation Intact, NVI Distally SURGICAL WOUND : Wound Location/Description Island dressings clean dry and intact, no signs of erythema or drainage. Area of mild swelling surrounding incision and is TTP. Incision General Appearance: Area of Swelling, No Direct Observation Dressing & Drainage Status: Intact Activity: Activity per PT, Ambulate with PT (weightbearing as tolerated on the right lower extremity using a front wheeled walker.) Catheters: None Assessment & Plan Impression Postop day #4 from right total hip arthroplasty Patient stayed to POD#4 due to urinary retention. Problems: Plan Postop day #4 from right total hip arthroplasty performed on 02/16/[address] Anand Archuleta. Weightbearing as tolerated on the right lower extremity using front wheeled walker. Continue formal physical therapy for mobility, gait and safety. Continue by mouth pain medication as needed. Continue Lovenox 40 mg subcutaneous daily 3 weeks postop with transition to ASA 325 mg EC by mouth twice a day times an additional 3 weeks postop totaling 6 weeks postoperative DVT prophylaxis. Please apply an ice pack to patient's incision to help decrease swelling. Discussed patient's urinary retention with Dr. Vinson and await his recommendations regarding discharge today. Follow-up in 2 weeks at [facility] orthopedic clinic with PA for wound check and suture removal. Follow-up in 6 weeks [facility] orthopedic clinic on prearranged appointment with Dr. Anand rAchuleta with x-rays. Anticipate discharge to home today, 02/19/2017. VTE Prophylaxis: Sub-Q Enoxaparin (Lovenox 40 mg 3 weeks postop for DVT prophylaxis with transition to ASA 325 mg EC by mouth twice a day times an additional 3 weeks totaling 6 weeks postop DVT prophylaxis.), SCDs (left side in place. Right side to be edited today, 02/18/2017.), EDITH Santana (left side in place, right to be added today, 02/18/2017) Karen Acevedo PA-C Feb 20, 2017 09:00
[2017-02-20 10:16] VITALS: BP 131/70; PULSE 83; RESP 19; O2SAT 99
[2017-02-20] MEDS ORDERED: Lidocaine 2% 5 mL Topical Jelly TOPICAL PRN (12:00)
--- NOTE | 2017-02-20 12:14 | NUR ---
PVR PVR 886ml. MD aware. Preparing to straight cath in and out but pt refuses unless we use Lidocaine. Lidocaine ordered by MD but waiting for from pharmacy. Pt understands that this may take 10-20 minutes. Pt states "I don't care as long as you have lidocaine before you put the catheter in." Pt continues to refuse any education regarding hid bladder, Lovenox, or blood sugars. Care continues
--- NOTE | 2017-02-20 12:19 | PCM.PNMED ---
Subjective Date of Service Feb 20, 2017 Subjective patient still hasn't voided well, Flomax was increased to 0.8 overnight patient would not want to leave the hospital consulted on the phone Exam Vital Signs Vital Sign - Last Date Time Temp Pulse Resp B/P Pulse Ox O2 Delivery O2 Flow Rate FiO2 02/20/17 10:16 36.9 83 19 131/70 99 Room Air 02/17/17 04:29 3.00 Intake and Output 02/19/17 02/19/17 02/20/17 Cumulative From/Thru 15:00 23:00 07:00 02/15/17 09:29 - 02/20/17 06:00 Intake Total 1036 ml 1500 ml 06071 ml Output Total 1700 ml 2025 ml 97213 ml Balance -664 ml -525 ml 1209 ml Intake Oral 1036 ml 1500 ml 9642 ml IV Total 3542 ml Output Urine Total 1350 ml 1725 ml 9325 ml Stool Total 350 ml 300 ml 2150 ml Estimated Blood Loss 500 ml # Bowel Movements 0 Exam NAD, comfortably laying down on the bed no JVD, MMM, no LAD RRR, nl s1, s2 no mrg CTAB, no w,c S,ND,NT,normoactive BS+ warm, no edema, pulses 2/2 BLE, sensory intact, IVs and Medications Medications Reviewed: Medications were reviewed in detail Lab and Diagnostics Result Diagram: 02/20/17 0547 02/20/17 0547 Assessment & Plan The patient is a 67-year-old male with Crohn's dz s/p colectomy remotely on chronic steroid, hx of gout, HTN, HLD, depression, chronic LLE edema, BPH, hypothyroidism, right hip severe degenerative arthritis with failed conservative measures came in for elective right total hip arthroplasty. Hospitalist service was asked to follow medical problems postop course. acute, active Urinary retention, developed postop, likely in the setting of BPH -continue flomax0.2, [id number] -will do q4h standing bladder scan, straight cath as needed -as per , patient was given two options, d/c with card and early follow up with but refused right hip severe degenerative arthritis s/p arthroplasty on 02/16 -appreciate posterior management of pain, dvt ppx per primary team. -encourage incentive spirometer use, O2 supplement as needed -cbc daily, transfuse per protocol -patient was surgically cleared today MORAIMA on CKD, POA, cr1.69-1.73, peaked to 2.1 02/19, trending down, likely post- obstructive -avoid renal toxin, adjust meds renally, trends cr daily chronic, stable, Crohn's dz s/p colectomy remotely on chronic steroid, continue steroid home dose , hx of gout, rarely using colchicine, hold off now HTN, continue home amlodipine HLD, continue simvastatin depression, continue celexa chronic LLE edema, continue home lasix hypothyroidism, continue home levothyroxine dispo:1-2more days diet:regular diet dvt ppx:LMWH Full Code, verbally confirmed with patient VTE Prophylaxis: Sub-Q Enoxaparin (Lovenox 40 mg 3 weeks postop for DVT prophylaxis with transition to ASA 325 mg EC by mouth twice a day times an additional 3 weeks totaling 6 weeks postop DVT prophylaxis.), SCDs (left side in place. Right side to be edited today, 02/18/2017.), EDITH Santana (left side in place, right to be added today, 02/18/2017) VTE Mechanical Devices: Intermittant Pneumatic CD Time spent 35min Robby Vinson MD Feb 20, 2017 12:19
--- NOTE | 2017-02-20 12:45 | NUR ---
Cath in and out Straight catheter placed in pt. 1000ml out. No issues with placement. Lidocaine used topically as per pt request. Care continues. PVR Q4hrs.
--- NOTE | 2017-02-20 13:27 | NUR ---
GERARDO signed. Kathy Luna [facility]
[2017-02-20 14:16] VITALS: BP 129/70; PULSE 104; RESP 19; O2SAT 97
--- NOTE | 2017-02-20 17:00 | NUR ---
In and out cath PVR 800+mls. notified regarding whether to place Card to stay in for the night or in and out. states in and out cath unless pt wants to go home with indwelling Card until seen by urology. In and out cath performed. 875ml out. No issues placing card. Lidocaine used per pt request. PVR will continues Q4hrs. Care continues
[2017-02-20 20:20] VITALS: BP 119/69; PULSE 96; RESP 20; O2SAT 98
--- NOTE | 2017-02-21 00:09 | NUR ---
Card/PVR Performed PVR at 1999 and Pt had 650ml, in/out cath completed, clear yellow urine. Lidocaine used per Pt request. Discussed with Pt the benefits of having a card cath in place so he can discharge home and follow up with urology as discussed earlier in the day with MD. Pt agreed to card and to go home with leg bag. He realized the medication he is taking is just"not getting the job done" and maybe something else is happening. Card cath placed at 0000, return urine was hematuria. Lidocaine was used during procedure per Pt request. Pt rec'd vicodin 7.5/325mg prior to card placed. Will continue to monitor and do PVR if needed
[2017-02-21] MEDS: Sodium Chloride LOK Flush 10 mL Syringe IV SCH ×2 (00:38→09:35)
[2017-02-21 07:26] VITALS: BP 149/83; PULSE 83; RESP 20; O2SAT 97
[2017-02-21] MEDS: Insulin LISPRO 300 Unit/3 mL Inj SUBQ SCH ×2 (08:00→13:17)
--- NOTE | 2017-02-21 09:03 | PCM.PNORTH ---
Subjective Date of Service: Feb 21, 2017 Visit Information: Reason for Visit Right Hip Arthritis Surgery/Surgery Date RIGHT TOTAL HIP 02/16/17 Post-Op Day # 5 Date of Admission: Feb 16, 2017 at 14:59 Hospital Day # Subjective Patient states his hip feels stronger today. He states he is "fine." Patient is concerned about going home even though he is retaining urine. Postop General: No Complaints, No Shortness of Breath, No Chest Pain, Good Appetite Pain Management: PO Objective Exam Objective Patient sitting up enjoying breakfast Vital Signs and I/O Vital Sign - Last Date Time Temp Pulse Resp B/P Pulse Ox O2 Delivery O2 Flow Rate FiO2 02/21/17 07:26 37.0 83 20 149/83 97 Room Air 02/17/17 04:29 3.00 Intake and Output 02/20/17 02/20/17 02/21/17 Cumulative From/Thru 15:00 23:00 07:00 02/15/17 09:29 - 02/21/17 04:35 Intake Total 1500 ml 22464 ml Output Total 2225 ml 300 ml 75369 ml Balance -725 ml -300 ml 184 ml Intake Oral 1500 ml 77095 ml IV Total 3542 ml Output Urine Total 2225 ml 79726 ml Stool Total 300 ml 2450 ml Estimated Blood Loss 500 ml # Bowel Movements 0 Lab & Micro Results Laboratory Tests Test 02/21/17 05:44 Sodium Level 142mEq/L (134-144) Potassium Level 3.9mEq/L (3.5-5.2) Chloride Level 107mEq/L (97-108) Carbon Dioxide Level 20mmol/L (18-29) Blood Urea Nitrogen 29mg/dL (8-27) Creatinine 1.88mg/dL (0.76-1.27) Estimat Glomerular Filtration Rate 38mL/min (>59) Glucose Level 136mg/dL (60-99) Calcium Level 9.1mg/dL (8.5-10.1) Total Bilirubin 0.3mg/dL (0.0-1.2) Aspartate Amino Transf (AST/SGOT) 13U/L (0-50) Alanine Aminotransferase (ALT/SGPT) 17U/L (0-44) Alkaline Phosphatase 59U/L (25-160) Total Protein 5.5g/dL (6.4-8.4) Albumin 3.1g/dL (3.4-5.0) Result Diagram: 02/20/17 0547 02/21/17 0544 General Appearance: Alert, Oriented X3, Cooperative, No Acute Distress Extremities: Distal Pulses Palpable, No Compartment Syndrom Noted, Tenderness/ Swelling Noted (Improved TTP and swelling at incision) Postop Sensory Motor: Distal Motor Intact, Movement in Toes, Distal Sensation Intact, NVI Distally SURGICAL WOUND : Incision General Appearance: Area of Swelling, No Direct Observation Dressing & Drainage Status: Intact Activity: Activity per PT, Ambulate with PT (weightbearing as tolerated on the right lower extremity using a front wheeled walker.) Catheters: None Assessment & Plan Impression Postop day #5 from right total hip arthroplasty Patient stayed to POD#4 due to urinary retention. Problems: Plan Postop day #5 from right total hip arthroplasty performed on 02/16/[address] Anand Archuleta. Weightbearing as tolerated on the right lower extremity using front wheeled walker. Continue formal physical therapy for mobility, gait and safety. Continue by mouth pain medication as needed. Continue Lovenox 40 mg subcutaneous daily 3 weeks postop with transition to ASA 325 mg EC by mouth twice a day times an additional 3 weeks postop totaling 6 weeks postoperative DVT prophylaxis. Please apply an ice pack to patient's incision to help decrease swelling. Discussed patient's urinary retention with Dr. Vinson and I believe the plan is to discharge home with a card and to follow up with Urology. Follow-up in 2 weeks at [facility] orthopedic clinic with PA for wound check and suture removal. Follow-up in 6 weeks [facility] orthopedic clinic on prearranged appointment with Dr. Anand Archuleta with x-rays. Anticipate discharge to home today, 02/21/2017. VTE Prophylaxis: Sub-Q Enoxaparin (Lovenox 40 mg 3 weeks postop for DVT prophylaxis with transition to ASA 325 mg EC by mouth twice a day times an additional 3 weeks totaling 6 weeks postop DVT prophylaxis.), SCDs (left side in place. Right side to be edited today, 02/18/2017.), EDITH Goncalvese (left side in place, right to be added today, 02/18/2017) Karen Acevedo PA-C Feb 21, 2017 09:03
--- NOTE | 2017-02-21 09:07 | PCM.DIORTH ---
Ortho Discharge Instruction Date of Service: Feb 21, 2017 Dates of Hospitalization Date of Hospital Admission Feb 16, 2017 at 14:59 Providers Admitting Physician: Anand Archuleta DO Primary Care Physician: Nasir York MD Attending Physician: Anand Archuleta DO Diet Discharge Diet: No restrictions Activity Discharge Activity-General: Be up and about, Balance rest and activity, Ice incision 3-5 time/day for 20min Right Lower Extremity: Weight Bearing as tolerated Dressing and Incisional Care Discharge Dressing Care: Allow Steri Stripes to fall off Discharge Hygiene: May shower (with incision uncovered when incision is dry and no drainage is present), DO NOT soak incision under water, NO bathtub, hot tub or whirlpool Additional Instructions Discharge Instructions Weightbearing as tolerated on the right lower extremity using front wheeled walker. Continue by mouth pain medication as needed and as directed. Continue Lovenox 40 mg subcutaneous daily 3 weeks postop with transition to ASA 325 mg EC by mouth twice a day times an additional 3 weeks postop totaling 6 weeks postoperative DVT prophylaxis. You may remove dressings when incision is dry. You may shower without incision covered when incision is dry and no drainage is present. Continue wearing your compression stockings. Follow-up in 2 weeks at [facility] orthopedic clinic with PA for wound check. Follow-up in 6 weeks [facility] orthopedic clinic on prearranged appointment with Dr. Anand Archuleta with x-rays. Karen Acevedo PA-C Feb 21, 2017 09:07
[2017-02-21] MEDS ORDERED: Hydrocodone/Acetaminophen PO (09:12)
[2017-02-21] MEDS ORDERED: ENOX40DI8 SUBQ (09:12)
[2017-02-21] MEDS ORDERED: HYDR25CA PO (09:12)
[2017-02-21] MEDS: predniSONE 5 mg Tablet PO SCH (09:34)
[2017-02-21] MEDS: HYDROcodone-APAP 7.5-325 mg Tablet PO PRN ×2 (09:37→15:57)
[2017-02-21] MEDS: Senna-Docusate 8.6-50 mg Tablet PO SCH (09:38)
[2017-02-21] MEDS ORDERED: TAMS0.4C29 PO (09:47)
--- NOTE | 2017-02-21 10:07 | PCM.DIMED ---
Discharge Instructions Date of Service Feb 21, 2017 Dates of Hospitalization Feb 16, 2017 at 14:59 Discharge Diagnosis Discharge Diagnosis acute Urinary retention, developed postop, likely in the setting of BPH Right hip severe degenerative arthritis s/p arthroplasty on 02/16 MORAIMA on CKD, POA, post-obstructive chronic Crohn's dz s/p colectomy hx of gout, HTN, HLD, depression, chronic LLE edema, hypothyroidism, Medication Instructions Please continue to take 0.8mg of Tamsulosin, finasteride 5mg qd Diet No restrictions Activity No restrictions Patient Instructions You were hospitalized with hip fracture, underwent surgery. You developed urinary retention, kidney injury. Please note that you have to contact Urologist [phone] to arrange appointment on Wednesday. Please leave the card cath in place until you . Please follow instruction for Orthopedic service Follow-up plan Please follow up with your primary doctor in 2weeks Follow-up Provider: Nasir York MD Follow-up with PCP in: 2 weeks Robby Vinson MD Feb 21, 2017 10:07
[2017-02-21 10:35] VITALS: BP 151/80; PULSE 92; RESP 21; O2SAT 99
--- NOTE | 2017-02-21 16:22 | NUR ---
Discharge Pt discharged at 1607 in w/c with friend to private vehicle. Pt VSS, JOHNSON, A&O x 3, pain controlled at 4/10 and pt premedicated prior to d/c. Island dressing C,D&I and hip precautions explained again. Pt has all discharge instructions, care notes and rx's. Pt teaching done on Lovenox injections and teaching kit given. Teaching also done on Baldwin and pt understands he will go home with catheter in place and is to call urology tomorrow morning for appt. All questions answered and pt has all belongings. IV removed intact.
--- NOTE | 2017-02-21 16:55 | NUR ---
Social Work:Choice/Discharge Informatica met with patient and provided him with HH choices. Patient stated that he does not have a preference for HH. SW referred to the vendor calendar and referred patient to [facility]. SW will give [facility] access and [id number] faxed to [facility]. Patient discharging home via POV.
--- NOTE | 2017-02-21 23:09 | PCM.DC.MED ---
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 Hospitalist service was asked to follow medical problems postop course. Pt stated that he is mild pain on surgical site, but otherwise in his normal condition. denied fever, chills, cough, sputum, chest pain, difficulty breathing , nausea, vomiting at the moment. Hospital Course The patient is a 67-year-old male with Crohn's dz s/p colectomy remotely on chronic steroid, hx of gout, HTN, HLD, depression, chronic LLE edema, BPH, hypothyroidism, right hip severe degenerative arthritis with failed conservative measures came in for elective right total hip arthroplasty. Hospitalist service was asked to follow medical problems postop course. acute Urinary retention, developed postop, likely in the setting of known BPH, patient was continued on flomax0.4, [id number], then increased flomax 0.8. Patient still retained urine, eventually card was inserted. Urologist contacted, agreed to follow up patient in the clinic early next week. Right hip severe degenerative arthritis s/p arthroplasty on 02/16, surgically cleared on POD#3 MORAIMA on CKD likely post-obstructive, POA, cr1.69-1.73, peaked to 2.1 4/, trended down upon d/c chronic Crohn's dz s/p colectomy remotely on chronic steroid, continued steroid home dose, hx of gout, rarely using colchicine, HTN, continued home amlodipine HLD, continued simvastatin depression, continude celexa chronic LLE edema, continued home lasix hypothyroidism, continued home levothyroxine Exam Vital Signs (Last) Date Time Temp Pulse Resp B/P Pulse Ox O2 Delivery O2 Flow Rate FiO2 02/21/17 07:26 37.0 83 20 149/83 97 Room Air 02/17/17 04:29 3.00 Exam NAD, comfortably laying down on the bed no JVD, MMM, no LAD RRR, nl s1, s2 no mrg CTAB, no w,c S,ND,NT,normoactive BS+ warm, no edema, pulses 2/2 BLE, sensory intact, Test 02/16/17 14:58 02/20/17 05:47 02/21/17 05:44 Urine Color Yellow (YELLOW) Urine Appearance Clear (CLEAR,HAZY) Urine pH 5.5 (5.0-8.0) Urine Specific [place] 1.020 (1.003-1.035) Urine Protein Negativemg/dL (NEG,TRACE) Urine Glucose (UA) Negativemg/dL (NEGATIVE) Urine Ketones Negativemg/dL (NEGATIVE) Urine Occult Blood Negative (NEGATIVE) Urine Nitrite Negative (NEGATIVE) Urine Bilirubin Negative (NEGATIVE) Urine Urobilinogen Normalmg/dL (NORMAL) Urine Leukocyte Esterase Negative (NEGATIVE) Urine RBC 0-2/hpf (0-2) Urine WBC 0-5/hpf (0-5) Urine Epithelial Cells Occasional/hpf (NONE-MOD) Urine Crystals Amorphous urates (NONE Urine Bacteria None/hpf (NONE-FEW) Urine Hyaline Casts None/lpf (NONE) Urine Granular Casts None seen (NONE SEEN) Urine Waxy Casts None seen (NONE SEEN) Urine Red Blood Cell Casts None seen (NONE SEEN) Urine White Blood Cell Casts None seen (NONE SEEN) Urine Mucus None seen (None Seen) Urine Trichomonas None seen (NONE SEEN) Urine Yeast None (NONE SEEN) Urinalysis Comment None Urine Culture Reflexed Not indicated White Blood Count 6.9th/mm3 (3.8-10.1) Red Blood Count 3.11mil/mm3 (4.40-5.80) Hemoglobin 9.3g/dL (13.8-17.2) Hematocrit 27.4% (41.0-50.0) Mean Corpuscular Volume 88.1fL (81-100) Mean Corpuscular Hemoglobin 29.9pg (27.0-35.0) Mean Corpuscular Hemoglobin Concent 33.9% (32.0-37.0) Red Cell Distribution Width 13.1% (12.3-15.4) Platelet Count 146bil/L (150-400) Neutrophils (%) (Auto) 74.2% (40-74) Lymphocytes (%) (Auto) 10.5% (14-46) Monocytes (%) (Auto) 12.4% (4-12) Eosinophils (%) (Auto) 2.7% (0-5) Basophils (%) (Auto) 0.1% (0-3) Phosphorus Level 3.8mg/dL (2.5-4.9) Magnesium Level 1.9mg/dL (1.6-2.6) Sodium Level 142mEq/L (134-144) Potassium Level 3.9mEq/L (3.5-5.2) Chloride Level 107mEq/L (97-108) Carbon Dioxide Level 20mmol/L (18-29) Blood Urea Nitrogen 29mg/dL (8-27) Creatinine 1.88mg/dL (0.76-1.27) Estimat Glomerular Filtration Rate 38mL/min (>59) Glucose Level 136mg/dL (60-99) Calcium Level 9.1mg/dL (8.5-10.1) Total Bilirubin 0.3mg/dL (0.0-1.2) Aspartate Amino Transf (AST/SGOT) 13U/L (0-50) Alanine Aminotransferase (ALT/SGPT) 17U/L (0-44) Alkaline Phosphatase 59U/L (25-160) Total Protein 5.5g/dL (6.4-8.4) Albumin 3.1g/dL (3.4-5.0) Discharge Medications Discharge Medications Amlodipine (Amlodipine) 5 Mg Tablet 5 MG PO DAILY (Reported) Citalopram (Citalopram) 40 Mg Tablet 40 MG PO DAILY (Reported) Colchicine (Colcrys) 0.6 Mg Tablet 0.6 MG PO DAILY (Reported) Enoxaparin Sodium (Enoxaparin Sodium) 40 Mg/0.4 Ml Syringe 40 MG SUBQ DAILY Prescribed by: LUDY BURGOS Ferrous Sulfate (Ferrous Sulfate) 324 Mg Tablet.dr 324 MG PO DAILY (Reported) Finasteride (Finasteride) 5 Mg Tablet 5 MG PO DAILY (Reported) Furosemide (Furosemide) 40 Mg Tablet 40 MG PO DAILY (Reported) Levothyroxine (Levothyroxine) 88 Mcg Tablet 88 MCG PO DAILY (Reported) Multivitamin (Multi Vitamin Daily) 1 Each Tablet 1 EACH PO DAILY (Reported) Prednisone (PredniSONE) 5 Mg Tab 5 MG PO DAILY (Reported) Simvastatin (Simvastatin) 20 Mg Tablet 20 MG PO HS (Reported) Tamsulosin ER (Tamsulosin ER) 0.4 Mg Cap.er.24h 0.8 MG PO DAILY Prescribed by: ROBBY JACINTO MD As needed Hydroxyzine Pamoate (Vistaril) 25 Mg Capsule 25 MG PO Q6H PRN PRN Spasms Prescribed by: LUDY BURGOS Miscellaneous Medications ([Hydrocodone/Acetaminophen]) 1 TABLET TABLET 1-2 TABLET PO Prescribed by: LUDY BURGOS Followup Plan Disposition: home Time spent 65min Robby Jacinto MD Feb 21, 2017 10:02
== END 2017-02-21 16:35 | disposition home health service (06) | DRG 470 ==
LOC: SAS 10:27 → OSC 14:59
PROVIDERS: ADMIT Orthopaedic Surgery; ATTEND Orthopaedic Surgery
PROC: 0SR904A Replacement of Right Hip Joint with Ceramic on Polyethylene Synthetic Substitute, Uncemented, Open Approach (ICD-10-PCS; principal; 2017-02-16 12:30)
DX: M16.11 Unilateral primary osteoarthritis, right hip (principal); N17.9 Acute kidney failure, unspecified; F17.210 Nicotine dependence, cigarettes, uncomplicated; Z93.4 Other artificial openings of gastrointestinal tract status; Z79.52 Long term (current) use of systemic steroids; E03.9 Hypothyroidism, unspecified; R33.8 Other retention of urine; N40.1 Benign prostatic hyperplasia with lower urinary tract symptoms; F32.9 Major depressive disorder, single episode, unspecified; N18.9 Chronic kidney disease, unspecified; I12.9 Hypertensive chronic kidney disease with stage 1 through stage 4 chronic kidney disease, or unspecified chronic kidney disease